=== PATIENT | female | born 1965 | race Caucasian/White ===

== ENCOUNTER 2021-01-08 12:51 | Emergency (ER) | payer MEDICAID ==
[~2021-01-08] VITALS: Ht 157.5 cm; Wt 74.4 kg
[2021-01-08 13:01] VITALS: BP 118/77
--- NOTE | 2021-01-08 13:44 | NUR ---
56 Y/O FEMALE BIB SELF C/O BACK PAIN X YESTERDAY. PAIN 10/10, CONTINUOUS, RADIATES TO RIGHT SHOULDER AND NECK, DESCRIBED SHARP. PT DENIES RECENT FALL OR TRAUMA. TOOK VALIUM TO "HELP RELAX MUSCLES". SYMMETRICAL BILATERAL STRENGTH NOTED, SENSATION INTACT. AO4, BREATHING EVEN AND UNLABORED, SKIN WARM AND DRY. BED IN LOWEST POSITION, LOCKED, X1 SIDERAIL UP. PMH - SURGERY FORAMEN OVALE NKA
[2021-01-08] MEDS ORDERED: CYCL10TA33 PO (14:11)
[2021-01-08] MEDS ORDERED: LID5T TP (14:11)
[2021-01-08] MEDS ORDERED: IBUP-2213 PO (14:11)
[2021-01-08] MEDS: KETOROLAC 30 MG/ML VIAL IM SCH (14:16)
--- NOTE | 2021-01-08 14:29 | NUR ---
Patient discharged with v/s stable. Written and verbal after care instructions ABOUT CERVICAL STRAIN AND SPRAIN REHAB given and explained. Patient alert, oriented and verbalized understanding of instructions. Ambulatory with steady gait. All questions addressed prior to discharge. ID band removed. Patient advised to follow up with PMD. Rx of CYCLOBENZAPRINE, IBUPROfen, and lidocaine given. Patient educated on indication of medication including possible reaction and side effects. Opportunity to ask questions provided and answered.
[2021-01-08 14:37] VITALS: BP 118/77
== END 2021-01-08 14:30 | disposition home or self-care (01) ==
LOC: MED 12:51
DX: S16.1XXA Strain of muscle, fascia and tendon at neck level, initial encounter (principal); Z79.899 Other long term (current) drug therapy; Y08.89XA Assault by other specified means, initial encounter; Y93.89 Activity, other specified; Y92.89 Other specified places as the place of occurrence of the external cause; Y99.8 Other external cause status
CPT/HCPCS: 96372; 99283; J1885